=== PATIENT | male | born 1940 | race Caucasian/White ===

== ENCOUNTER → 2016-09-11 | Outpatient (CLI) | payer BC ==
[~2016-09-11] MED LIST: APR50; ASPI81TA28 PO; ATOR-24 PO; BENA20TA14 PO; CARB1TAB29 PO; CARV12.52 PO; EFF75 PO; FINA5TAB PO; GLC/500 PO; IMDSR30 PO; KLN5 PO; LSX20 PO; MCRK20 PO; PARO30TA4 PO; TAMS0.4C38 PO; TRAM-10 PO; VSC/5 PO; ZRX5
[2016-09-11 17:50] LABS: CHOLESTEROL/HDL RATIO 3.5
[2016-09-12 06:39] LABS: ESTIMATED AVERAGE GLUCOSE 134 mg/dl; HA1C FLAG Normal (Normal)
== END | disposition home or self-care (01) ==
LOC: C.LABPBG 11:59
PROVIDERS: ATTEND Internal Medicine
DX: I25.10 Atherosclerotic heart disease of native coronary artery without angina pectoris (principal); I50.22 Chronic systolic (congestive) heart failure; E78.5 Hyperlipidemia, unspecified; I10 Essential (primary) hypertension; E11.9 Type 2 diabetes mellitus without complications

== ENCOUNTER → 2016-12-30 | Outpatient (CLI) | payer BC ==
[~2016-12-30] MED LIST changes: +ACET1TAB84 PO; +ASPEC325 PO; +RXC5 PO
[2016-12-30 12:18] LABS: BASO % 0.3 %; BASO ABS # 0.02 K/uL (0-0.2); COMPLETE YES; EOS % 3.4 %; HEMATOCRIT 41.9 % (42-52); IG% 0.2 %; LYMPH % 23.4 %; LYMPH ABS # 1.36 K/uL (1.2-3.4); MEAN CELL VOLUME 88.6 fL (80-100); MEAN CORPUSCULAR HEMOGLOBIN 30.9 pg (25-34); MEAN CORPUSCULAR HGB CONC 34.8 g/dl (32-36); MONO % 8.4 %; NEUT % 64.3 %; PLATELET COUNT 167 K/uL (130-400); RED BLOOD COUNT 4.73 M/uL (4.7-6.1); WHITE BLOOD COUNT 5.81 K/uL (4.8-10.8)
[2016-12-30 12:46] LABS: URINE APPEARANCE CLEAR (CLEAR); URINE BILIRUBIN NEG (NEG); URINE COLOR DK YELLOW; URINE NITRITE NEG (NEG); URINE SPECIFIC GRAVITY 1.021 (1.000-1.030); UROBILINOGEN NEG (NEG)
[2016-12-30 12:48] LABS: URINE PROTIEN/CREAT RATIO 0.1 (0-0.2); URINE TOTAL PROTEIN 19.3 mg/dl (0-11.9)
[2016-12-30 12:53] LABS: MANUAL MICROSCOPIC REQUIRED? NO; REVIEW REQ? NO
[2016-12-30 13:28] LABS: BLOOD UREA NITROGEN 22 mg/dl (7-18); BUN/CREATININE RATIO 17.1 (10-20); CALCIUM 8.5 mg/dl (8.5-10.1); CARBON DIOXIDE 27 mmol/L (21-32); CHLORIDE 110 mmol/L (98-107); GLUCOSE 132 mg/dl (70-99); PHOSPHORUS 3.2 mg/dl (2.5-4.9); POTASSIUM 3.8 mmol/L (3.5-5.1); SODIUM 145 mmol/L (136-145)
[2016-12-30 13:31] LABS: RHEUMATOID FACTOR < 10.0 U/mL (0-15)
[2016-12-30 18:09] LABS: LYME DISEASE AB IGM NEG (NEG)
[2016-12-30 18:12] LABS: LYME DISEASE AB IGG NEG (NEG)
== END | disposition home or self-care (01) ==
LOC: C.LABPBG 10:53
PROVIDERS: ATTEND Internal Medicine
DX: I10 Essential (primary) hypertension (principal); I25.5 Ischemic cardiomyopathy; N18.3 Chronic kidney disease, stage 3 (moderate); D64.9 Anemia, unspecified; E55.9 Vitamin D deficiency, unspecified; M79.1 Myalgia

== ENCOUNTER → 2017-01-07 | Outpatient (CLI) | payer BC ==
--- NOTE | 2017-01-07 12:00 | DIAGNOSTIC IMAGING REPORT ---
FLUOROSCOPIC GUIDED right HIP STEROID INJECTION FLUOROSCOPY TIME: 10 seconds. A single fluoroscopic spot image. HISTORY: Right hip pain.. PROCEDURE: After obtaining written informed consent, the patient was placed supine on the fluoroscopy table. A suitable site for needle insertion was marked using fluoroscopic guidance. The right hip was prepped and draped in the usual sterile fashion. 1% lidocaine was used for skin, subcutaneous and deep soft tissue anesthesia. Under intermittent fluoroscopic guidance, a 22 gauge x 3.5 inch spinal needle was inserted into the right hip joint. 2 cc of Optiray 300 was injected to confirm the intra-articular location. This is followed by a mixture of 5cc of 0.5% bupivacaine and 2 cc of Celestone at the request of the referring physician. The needle was then removed. There were no apparent complications. IMPRESSION: Fluoroscopic-guided right hip steroid injection without immediate complication. Electronically signed by: Jacob Raphael M.D. 01/07/2017 11:58 AM Dictated Date/Time: 01/07/2017 11:57 AM
== END | disposition home or self-care (01) ==
LOC: C.RADBC 10:34
PROVIDERS: ATTEND Orthopaedic Surgery
DX: M16.11 Unilateral primary osteoarthritis, right hip (principal)

== ENCOUNTER → 2017-04-07 | Outpatient (CLI) | payer BC ==
--- NOTE | 2017-04-07 11:10 | DIAGNOSTIC IMAGING REPORT ---
FLUOROSCOPIC GUIDED right HIP STEROID INJECTION FLUOROSCOPY TIME: 6 seconds. Single fluoroscopic spot image of the right hip HISTORY: Right hip pain. PROCEDURE: After obtaining written informed consent, the patient was placed supine on the fluoroscopy table. A suitable site for needle insertion was marked using fluoroscopic guidance. The right hip was prepped and draped in the usual sterile fashion. 1% lidocaine was used for skin, subcutaneous and deep soft tissue anesthesia. Under intermittent fluoroscopic guidance, a 22 gauge x 3.5 inch spinal needle was inserted into the right hip joint. 2 cc of Optiray 300 was injected to confirm the intra-articular location. This is followed by a mixture of 5cc of 0.5% bupivacaine and 2 cc of betamethasone at the request of the referring physician. The needle was then removed. There were no apparent complications. IMPRESSION: Fluoroscopic-guided right hip steroid injection without immediate complication. Electronically signed by: Jacob Raphael M.D. 04/07/2017 11:09 AM Dictated Date/Time: 04/07/2017 11:08 AM
== END | disposition home or self-care (01) ==
LOC: C.RADBC 09:40
PROVIDERS: ATTEND Orthopaedic Surgery
DX: M16.11 Unilateral primary osteoarthritis, right hip (principal)

== ENCOUNTER → 2017-05-14 | Outpatient (CLI) | payer BC ==
[~2017-05-14] MED LIST changes: -ACET1TAB84 PO; -ASPEC325 PO; -PARO30TA4 PO; -RXC5 PO; -TRAM-10 PO; -VSC/5 PO
[2017-05-14 16:53] LABS: MANUAL MICROSCOPIC REQUIRED? NO; REVIEW REQ? NO; URINE APPEARANCE CLEAR (CLEAR); URINE BILIRUBIN NEG (NEG); URINE COLOR YELLOW; URINE EPITHELIAL CELL AUTO 0-5 /lpf (0-5); URINE NITRITE NEG (NEG); URINE PH 6.5 (4.5-7.5); URINE SPECIFIC GRAVITY 1.019 (1.000-1.030); UROBILINOGEN NEG (NEG)
== END | disposition home or self-care (01) ==
LOC: C.LABPBG 14:34
PROVIDERS: ATTEND Internal Medicine
DX: N39.0 Urinary tract infection, site not specified (principal)

== ENCOUNTER → 2017-05-18 | Outpatient (CLI) | payer BC ==
[~2017-05-18] MED LIST changes: +ACET1TAB84 PO; +ASPEC325 PO; +BUPIVACAINE 0.5 % 5 MG/1 ML PF 10ML VIAL ONE; +EpHEDrine SULFATE 50MG/5ML SYR ONE; +EpHEDrine SULFATE INJ 50 MG/ML AMP ONE; +FENTANYL CITRATE INJ 50 MCG/1 ML 2 ML VIAL ONE; +MIDAZOLAM HCL 1 MG/ML 2ML VIAL ONE; +PHENYLEPHRINE 100MCG/ML 5ML SYR ONE; +PHENYLEPHRINE HCL INJ 10 MG/ML VIAL ONE; +PROPOFOL IV EMULSION 10 MG/ML 20 ML VIAL IV ONE; +REGADENOSON 0.4 MG/5 ML SYR ONE; +RXC5 PO
--- NOTE | 2017-05-18 18:34 | Myocardial Perfusion Study ---
Myocardial Perfusion Study Rpt Myocardial Perfusion Study Rpt Date of Service 05/18/2017 Myocardial Perfusion Study Rpt Procedure: 1. Myocardial perfusion study performed in multiple views/images 2. Lexiscan pharmacologic stress ECG Indications: 1. CAD 2. Ischemic cardiomyopathy 3. Preoperative cardiac assessment Consent: Informed written consent was obtained prior to the procedure. Ordering physician: Mr. Sp PA-C / Dr. Luis Procedural details: For the stress portion of the study, Lexiscan 0.4 mg was intravenously administered followed by a saline flush. This was followed by 31.8 mCi of technetium 99m Cardiolite, injected at 13 20 on 05/18/2017. 30 minutes following the injection, imaging of the heart was performed in multiple projections. For the rest portion of the study, 10.9 mCi technetium 99m Cardiolite was injected intravenously at 11:20 a.m. on 05/18/2017. 1 hour following the injection, imaging of the heart was performed in the same projections. Lexiscan stress ECG: Resting ECG demonstrated: Ventricular pacing with PVC at 62 bpm Maximum heart rate: 71 bpm Resting blood pressure: 121/80 mmHg Maximum blood pressure: 128/83 mmHg Maximal, age-predicted heart rate: 50 % Significant ST changes: None Arrhythmia: None Symptoms: No chest pain. No symptoms reported. Findings: Rotating raw imaging demonstrated no significant lung uptake. There is no significant motion artifact. Heart size appeared enlarged. Myocardial perfusion demonstrated small area of mildly reduced uptake involving the basal inferolateral wall which appeared to be fixed with minimal reversibility, suggesting infarct with arnoldo-infarct ischemia. No other significant fixed or reversible defect. Ejection fraction: 40 % Wall motion: The inferior and inferolateral wall segments appeared hypokinetic. Visually, there did appear to be some degree of transient ischemic dilation. Ratio not available. Impression: 1. Basal inferolateral infarct with arnoldo-infarct ischemia. 2. Dilated left ventricle. 3. Mildly to moderately reduced LV systolic function. EF 40%. 4. Hypokinesis of the inferior and inferolateral wall segments. 5. No symptoms reported. 6. Transient ischemic dilation upon visual inspection. Ratio not available. Nonspecific finding. 7. Indeterminate Lexiscan ECG.
== END | disposition home or self-care (01) ==
LOC: C.NUCL 10:54
PROVIDERS: ATTEND Physician Assistant Medical
DX: Z01.810 Encounter for preprocedural cardiovascular examination (principal); I25.10 Atherosclerotic heart disease of native coronary artery without angina pectoris; I25.5 Ischemic cardiomyopathy

== ENCOUNTER 2017-05-21 05:00 | Inpatient (IN) | payer BC, OTHER ==
[2017-05-03 10:54] VITALS: BMI 33.0
--- NOTE | 2017-05-03 11:40 | PAT Medication Instructions ---
Service Date May 03, 2017. Current Home Medication List Aspirin (Aspirin Ec), 81 MG PO QAM Atorvastatin (Lipitor), 40 MG PO HS Benazepril (Lotensin), 20 MG PO QAM Carbonyl Iron (Feosol), 1 TAB PO QAM Carvedilol (Coreg), 12.5 MG PO BID Clonazepam (Clonazepam), 0.25 MG PO HS Finasteride (Proscar), 5 MG PO QPM Furosemide (Furosemide), 40 MG PO BID Hydralazine HCl (Hydralazine HCl), TID Isosorbide Mononitrate (Isosorbide Mononitrate ER), 30 MG PO QAM Metformin Hcl (Glucophage), 500 MG PO QAM Metolazone (Metolazone), 5 MG UD PRN for WT GAIN Potassium Chloride (Klor-Con), 20 MEQ PO TID Tamsulosin Hcl (Flomax), 0.4 MG PO QPM Venlafaxine Hcl (Effexor), 75 MG PO QAM Medication Instructions For Your Scheduled Surgery - Hold the following medications 48 hours prior to surgery: Metformin Hcl (Glucophage), 500 MG PO QAM - Hold the following medications the morning of surgery: Potassium Chloride (Klor-Con), 20 MEQ PO TID Furosemide (Furosemide), 40 MG PO BID Carbonyl Iron (Feosol), 1 TAB PO QAM Benazepril (Lotensin), 20 MG PO QAM Metolazone (Metolazone), 5 MG UD PRN for WT GAIN - Take the following medications the morning of surgery with a sip of water: Venlafaxine Hcl (Effexor), 75 MG PO QAM Isosorbide Mononitrate (Isosorbide Mononitrate ER), 30 MG PO QAM Hydralazine HCl (Hydralazine HCl), TID Carvedilol (Coreg), 12.5 MG PO BID Aspirin (Aspirin Ec), 81 MG PO QAM - Take the following medications as scheduled the night before surgery: Tamsulosin Hcl (Flomax), 0.4 MG PO QPM Potassium Chloride (Klor-Con), 20 MEQ PO TID Hydralazine HCl (Hydralazine HCl), TID Furosemide (Furosemide), 40 MG PO BID Finasteride (Proscar), 5 MG PO QPM Clonazepam (Clonazepam), 0.25 MG PO HS Carvedilol (Coreg), 12.5 MG PO BID Atorvastatin (Lipitor), 40 MG PO HS If you have any questions please call us at [phone] or [phone] or [phone]
[2017-05-03 12:18] LABS: BASO % 0.5 %; BASO ABS # 0.03 K/uL (0-0.2); COMPLETE YES; EOS % 3.2 %; HEMATOCRIT 41.7 % (42-52); LYMPH ABS # 1.38 K/uL (1.2-3.4); MEAN CELL VOLUME 90.1 fL (80-100); MEAN CORPUSCULAR HEMOGLOBIN 31.7 pg (25-34); MEAN CORPUSCULAR HGB CONC 35.3 g/dl (32-36); MEAN PLATELET VOLUME 9.8 fL (7.4-10.4); MONO % 8.8 %; NEUT % 64.5 %; PLATELET COUNT 174 K/uL (130-400); RED BLOOD COUNT 4.63 M/uL (4.7-6.1); WHITE BLOOD COUNT 6.01 K/uL (4.8-10.8)
[2017-05-03 12:22] LABS: URINE APPEARANCE CLEAR (CLEAR); URINE BILIRUBIN NEG (NEG); URINE COLOR YELLOW; URINE NITRITE NEG (NEG); URINE PH 6.5 (4.5-7.5); URINE SPECIFIC GRAVITY 1.021 (1.000-1.030); UROBILINOGEN NEG (NEG)
[2017-05-03 12:24] LABS: MANUAL MICROSCOPIC REQUIRED? NO; REVIEW REQ? NO
[2017-05-03 12:27] LABS: PARTIAL THROMBOPLASTIN RATIO 1.1; PROTHROMBIN TIME (PATIENT) 11.1 SECONDS (9.0-12.0)
--- NOTE | 2017-05-03 12:33 | DIAGNOSTIC IMAGING REPORT ---
CHEST PREADMISSION(PA/LAT) CLINICAL HISTORY: Preoperative chest COMPARISON STUDY: 03/23/2014 FINDINGS: The cardiac and mediastinal contours remain stable. There is a left subclavian dual-chamber central venous pacemaker present. There is no failure. There is no focal pulmonary consolidation. No pleural effusions are visualized.[ IMPRESSION: No active disease in the chest. Electronically signed by: Linwood Morataya M.D. 05/03/2017 12:32 PM Dictated Date/Time: 05/03/2017 12:32 PM
[2017-05-03 13:19] LABS: CALCIUM 8.9 mg/dl (8.5-10.1); CREATININE 1.1 mg/dl (0.60-1.40); POTASSIUM 3.8 mmol/L (3.5-5.1)
--- NOTE | 2017-05-20 20:14 | HISTORY & PHYSICAL EXAMINATION ---
DATE OF ADMISSION: 05/21/2017 CHIEF COMPLAINT: Primary osteoarthritis of the right hip. HISTORY OF PRESENT ILLNESS: aRy is a pleasant 76-year-old male who is retired and has been having about 2-year history of right hip pain. He has had several intra-articular hip injections. Initially, they started to provide him relief, but more recently, they have not. He has difficulty ambulating, difficulty going up and down stairs. It occasionally keeps him up at night. It is all located deep within his groin. X-rays and clinical examination were diagnostic for primary osteoarthritis of the right hip. After failing extensive conservative treatment, he has elected to proceed with a right total hip arthroplasty. PAST MEDICAL HISTORY: Significant for heart disease, non-insulin dependent diabetes, hyperlipidemia, hypertension, and kidney disease. He had congestive heart failure with an CT in 2011 with heart catheterization in 2011 and a pacemaker placement. PAST SURGICAL HISTORY: Significant for Mohs surgery, right carpal tunnel release, hernia repair, left knee arthroscopy and a pacemaker. ALLERGIES: MORPHINE. MEDICATIONS: Include aspirin 81 mg daily, Lipitor 40 mg at night, benazepril 20 mg daily, Coreg 12.5 mg twice a day, clonazepam 0.25 mg at night, Proscar 5 mg daily, Lasix 40 mg twice a day, hydralazine 50 mg daily, isosorbide 30 mg daily, Glucophage 500 mg daily, metolazone 5 mg as needed, Klor-Con 20 mEq 3 times a day, Flomax 0.4 mg daily, and Effexor 75 mg daily. FAMILY HISTORY: Significant for heart disease and diabetes. SOCIAL HISTORY: He is , never drinks. Denies any tobacco use and does little activity. REVIEW OF SYSTEMS: He complains of significant right hip pain. All other pertinent review of systems are negative. PHYSICAL EXAMINATION: GENERAL: He is awake, alert and oriented x3. He is in no apparent distress. He is very pleasant. HEENT: Pupils equal, round and reactive to light. Extraocular motions are intact. Oral mucosa is pink and moist. HEART: Regular rate per radial pulse. LUNGS: Sendy symmetrically bilaterally with no audible breath sounds. ABDOMEN: Soft, nontender, and nondistended. MUSCULOSKELETAL: On physical examination of the right hip, he can lie flat on the table. He has 90 degrees of flexion, 10 degrees of internal rotation, 30 degrees of external rotation with pain and range of motion. He has no tenderness to palpation over the greater trochanteric bursa. He can plantarflex and dorsiflex appropriately with his right foot, and he has full range of motion of his knee. IMAGING DATA: X-rays of the right hip do show advanced osteoarthritis with joint space narrowing and osteophyte formation. IMPRESSION: Primary osteoarthritis of the right hip. PLAN: We will proceed with a Biomet Taperloc right total hip arthroplasty through an anterior approach. Postoperatively, he will be started on aspirin for DVT prophylaxis and kept in the hospital for postoperative medical management. PALLAVI
[~2017-05-21] VITALS: Ht 170.2 cm; Wt 96.4 kg
[2017-05-21] VITALS (12 sets, daily range): BP systolic 123–163; BP diastolic 66–86; PULSE 58–80; TEMP 35.4–36.8; O2SAT 94–98; Ht 170.2 cm; Wt 96.4 kg
[~2017-05-21 05:00] MED LIST changes: -ACET1TAB84 PO; -ASPEC325 PO; -BUPIVACAINE 0.5 % 5 MG/1 ML PF 10ML VIAL ONE; -EpHEDrine SULFATE 50MG/5ML SYR ONE; -EpHEDrine SULFATE INJ 50 MG/ML AMP ONE; -FENTANYL CITRATE INJ 50 MCG/1 ML 2 ML VIAL ONE; -MIDAZOLAM HCL 1 MG/ML 2ML VIAL ONE; -PHENYLEPHRINE 100MCG/ML 5ML SYR ONE; -PHENYLEPHRINE HCL INJ 10 MG/ML VIAL ONE; -PROPOFOL IV EMULSION 10 MG/ML 20 ML VIAL IV ONE; -REGADENOSON 0.4 MG/5 ML SYR ONE; -RXC5 PO
[2017-05-21] MEDS ORDERED: LACTATED RINGER'S 1000ML IV SCH (06:00)
[2017-05-21] MEDS ORDERED: CEFAZOLIN 2000 MG/60 ML D5W 60 ML IV SCH (06:00)
[2017-05-21] MEDS ORDERED: FAMOTIDINE 20 MG TAB PO SCH (06:00)
[2017-05-21] MEDS ORDERED: GABAPENTIN 300 MG CAP PO SCH (06:00)
[2017-05-21] MEDS ORDERED: ACETAMINOPHEN 500 MG TAB PO SCH (06:00)
[2017-05-21] MEDS ORDERED: ROPIVACAINE 5MG/ML 30 ML 150 MG, BUPIVACAINE/EPINEPHR 0.5% MPF 30 ML, KETOROLAC TROMETH... INFIL SCH ×7 (06:00)
[2017-05-21] MEDS ORDERED: LACTATED RINGER'S 1000ML 1,000 ML IV SCH (06:00)
[2017-05-21] MEDS ORDERED: ACET1TAB84 PO (06:11)
--- NOTE | 2017-05-21 06:27 | History & Physical Bridge Note ---
H&P Re-Evaluation Bridge Note: I have examined the patient, reviewed the History & Physical and in the interval since the performance of the History & Physical I have noted the following changes of clinical significance: No changes noted
[2017-05-21] MEDS: TRANEXAMIC ACID INJ 1,000 MG in SODIUM CHLORIDE 0.9% 100ML 100 ML IV SCH ×2 (06:30→06:56)
[2017-05-21] MEDS ORDERED: ORTHO JOINT ANESTHETIC ONE (06:39)
[2017-05-21] MEDS ORDERED: BACITRACIN 50000 UNIT VIAL ONE (06:40)
--- NOTE | 2017-05-21 09:19 | [facility] Post Operative Brief Note ---
Immediate Operative Summary Operative Date May 21, 2017. Pre-Operative Diagnosis Right hip degenerative joint disease Post-Operative Diagnosis same as pre-operative Procedure(s) Performed Right Anterior Total Hip Arthroplasty Surgeon Dr. Cameron Peña [place] [employer]er Surgeon(s) Song Smith PA-C Estimated Blood Loss 250ml Findings as above Specimens Specimen A: Right femoral head Complication(s) None Disposition Recovery Room / PACU
[2017-05-21] MEDS ORDERED: SOD PHOSPHATE/SOD BIPHOSPHATE ENEMA 132 ML BTL PR PRN (09:30)
[2017-05-21] MEDS ORDERED: ATROPINE SULFATE 0.1 MG/ML 5ML SYR IV PRN (09:30)
[2017-05-21] MEDS ORDERED: ONDANSETRON INJ 2 MG/ML 2 ML VIAL IV PRN ×2 (09:30)
[2017-05-21] MEDS ORDERED: DEXTROSE 50% 50 ML SYR IV PRN (09:30)
[2017-05-21] MEDS ORDERED: GLUCOSE 40% GEL 15 GM TUBE PO PRN (09:30)
[2017-05-21] MEDS ORDERED: HYDROmorphone INJ 1 MG/ML SYR IV PRN ×2 (09:30)
[2017-05-21] MEDS ORDERED: SILVER SULFADIAZINE 1% CR 50 GM JAR EXT PRN (09:30)
[2017-05-21] MEDS ORDERED: MAGNESIUM HYDROXIDE SUSP 30 ML UDC PO PRN (09:30)
[2017-05-21] MEDS ORDERED: GLUCOSE 10 TABS/TUBE PO PRN (09:30)
[2017-05-21] MEDS ORDERED: GLUCAGON FOR INJ 1 MG VIAL SQ PRN (09:30)
[2017-05-21] MEDS ORDERED: LABETALOL HCL IV 5 MG/ML 20ML IV PRN (09:30)
[2017-05-21] MEDS ORDERED: MEPERIDINE HCL 25 MG/ML CARP IV PRN (09:30)
[2017-05-21] MEDS ORDERED: BISACODYL 10 MG SUPP PR PRN (09:30)
[2017-05-21] MEDS ORDERED: FENTANYL CITRATE INJ 50 MCG/1 ML 2 ML VIAL IV PRN (09:30)
[2017-05-21] MEDS ORDERED: METOCLOPRAMIDE HCL INJ 5 MG/ML 2 ML VIAL IV PRN (09:30)
[2017-05-21] MEDS ORDERED: EpHEDrine SULFATE INJ 50 MG/ML AMP IV PRN (09:30)
[2017-05-21] MEDS ORDERED: OXYCODONE HCL IR 5 MG TAB (IMMEDIATE RELEASE) PO PRN (09:30)
[2017-05-21] MEDS ORDERED: PHARMACY GLYCEMIC MGMT CONSULT PRN (09:31)
--- NOTE | 2017-05-21 09:35 | DIAGNOSTIC IMAGING REPORT ---
R HIP UNILATERAL 1 VIEW HISTORY: 76 years-old Male RT ANTERIOR HIP status post right total hip arthroplasty COMPARISON: Pelvis radiograph 03/31/2017 TECHNIQUE: 2 spot fluoroscopic images of the right hip were obtained utilizing 51.9 seconds fluoroscopy time FINDINGS: First image demonstrates postoperative removal of the femoral head and neck. Acetabular component of right hip arthroplasty is intact and in satisfactory alignment. Second image demonstrates placement of a femoral stem arthroplasty component which appears in satisfactory positioning without periprosthetic fracture. Expected postsurgical soft tissue swelling and air is noted about the right hip. IMPRESSION: Fluoroscopic assistance as above. The above report was generated using voice recognition software. It may contain grammatical, syntax or spelling errors. Electronically signed by: Adrien Mckinney M.D. 05/21/2017 9:33 AM Dictated Date/Time: 05/21/2017 9:30 AM
--- NOTE | 2017-05-21 09:45 | Pharmacy Progress Note ---
Glycemic Control Intl Consult Date of Service May 21, 2017. Scope Glycemic Pharmacist consulted by Dr Peña on 05/21/17 for glycemic control and to write orders per [facility] inpatient glycemic control protocol Objective Weight (Kilograms): 96.40 Accuchecks BSG (last 24hrs): Test 05/21/17 05:38 Bedside Glucose 149 mg/dl (70-99) Recent Pertinent Medications Outpatient Anti-diabetic Regimen: * Metformin 500mg po daily * A1c = 6.3 % 09/11/16 Risk Factors for Insulin Resistance: * IVF: pre and post op Ancef mixed in dextrose * Recent Surgery: s/p JERAMIE * Diet: Type 2 DM Assessment & Plan ASSESSMENT: * 76 year old male s/p JERAMIE, type 2 diabetic, controlled per A1c in August, new A1c ordered with AM labs tomorrow. * Pt is maintained on oral antidiabetic agents as an outpatient * Oral agents are not recommended for inpatient use d/t drug interactions, changing PO intake, and difficulty titrating for acute hyper/hypoglycemia. ADA recommends re-initiating outpatient oral agents 1-2 days prior to discharge if/ when appropriate if they were held on admission. * Will hold oral agents for admission and utilize SQ bolus insulin regimen which is the recommended regimen for inpatient glycemic control. * Will initiate weight based insulin dosing for insulin shlomo patient and titrate based on BSG trends. * Will add basal insulin if needed based on BSG trends. * ADA & AACE recommend a goal blood sugar range 140-180 mg/dl for the majority of critically ill & non-critically ill patients. However, more stringent targets may be selected in individual cases. Will utilize more stringent goal of 110-140mg/dl based on patient age & comorbidities. Additionally, tighter glycemic control is warranted to facilitate wound/infection healing. PLAN FOR INPATIENT GLYCEMIC CONTROL: * Holding outpatient oral diabetes medications * Correctional Insulin with NOVOLOG per scale ACHS or Q6hrs while NPO * Goal Range: Low 110 mg/dL - High 140 mg/dL * Correction Factor: 30 mg/dL/unit * Nutritional / Prandial insulin per carb ratio of 1 unit per 12 grams CHO consumed * Please note that the plan above was derived based on current level of insulin resistance and hospital stress. These recommendations are appropriate for inpatient admission only. Plan of care upon discharge will need to be reassessed to avoid potential outpatient hypo/hyperglycemia. Thank you.
--- NOTE | 2017-05-21 10:02 | OPERATIVE REPORT ---
DATE OF OPERATION: 05/21/2017 PREOPERATIVE DIAGNOSIS: Primary osteoarthritis of the right hip. POSTOPERATIVE DIAGNOSIS: Same. PROCEDURE: Right total hip arthroplasty. SURGEON: Dr. Cameron Peña. TRANSPORT TANK TECHNICIAN: Lamonte Smith PA-C, whose assistance was necessary for retraction and closure. ANESTHESIA: Spinal. COMPLICATIONS: None. CONDITION: Stable to PACU. IMPLANTS USED: I used a Biomet Taperloc total hip arthroplasty with a size 11 high offset Taperloc stem, a G7 size 52 acetabulum with a single 20 mm screw, a 52 x 36 E1 neutral liner and a 36 ceramic head with a -3 neck. INDICATIONS: Juan is a pleasant 76-year-old male who presented to my office with chronic right hip and groin pain. X-rays and clinical examination were diagnostic for primary osteoarthritis of the right hip. After failing conservative treatment, he elected to undergo a right total hip arthroplasty. OPERATION AND FINDINGS: On 05/21/2017 he arrived at [facility] for the above procedure. He was seen in the preoperative holding area and the operative extremity was identified and signed. He was given a preoperative antibiotic, TXA and a spinal anesthetic. He was taken back to the operating room, laid on the table in supine position and given basic sedation. The right hip was then brought out to a Purist leg positioner and the right hip was prepped and draped in sterile fashion. Time-out was done and the patient and operative extremity was properly identified. An anterior approach was used. Dissection was taken down to the fascia and the fascia was split. The tensor was retracted laterally and rectus was retracted medially. Circumflex vessels were ligated. The capsule was then incised for later repair. The femoral neck was then resected and the head was removed. The acetabulum was then exposed. Time was spent doing a complete circumferential capsular labral release. Sequential reaming up to a size 51 reamer was done. Reaming was done under fluoroscopy to ensure appropriate aversion. The final size 52 G7 cup was then impacted into place. I was able to get a good press fit so I placed a single 20 mm screw. A neutral E1 poly liner was then placed. The proximal femur was then exposed and the canal was opened up. Sequential broaching up to a size 11 broach was done. A standard head was placed. The hip was reduced, fluoroscopic images were taken. I thought the leg length was a little bit long, so I decided to go with a -3 head. I was happy with the size of the stem implant. The broach was then removed. The final size 11 high offset Taperloc stem was then impacted into place. A size 36 ceramic head with a -3 neck was then placed on the trunnion and the hip was reduced. Final fluoroscopic images showed anatomic reduction and anatomic alignment of the hip with appropriate sizing of the implants. The capsule was then closed with #1 Vicryl suture and the entire hip was irrigated. The surrounding soft tissues were injected with 100 mL of an orthopedic pain control cocktail. The hip was once again irrigated with 3 liters of normal saline solution with bacitracin. Hemostasis was controlled and drain was placed. The fascia was then closed with #1 PDS suture and skin was closed with 2-0 Vicryl, 3-0 V-Loc suture and adrien. He was then placed in a soft dressing and taken to the postanesthesia care unit in stable condition. He tolerated the procedure well. I attest to the content of the Intraoperative Record and any orders documented therein. Any exception s are noted below.
--- NOTE | 2017-05-21 10:30 | Anesthesiology Progress Note ---
Anesthesia Post Op Note Date & Time May 21, 2017 at 10:30 Vital Signs Pain Intensity: 0 Vital Signs Past 12 Hours Date Time Temp Pulse Resp B/P (MAP) Pulse Ox O2 Delivery O2 Flow Rate FiO2 05/21/17 10:15 36.6 60 14 108/61 99 Oxymask 3 05/21/17 10:00 60 14 93/60 99 Oxymask 3 05/21/17 09:50 61 16 108/59 99 Oxymask 5 05/21/17 09:40 65 16 103/59 99 Oxymask 5 05/21/17 09:34 36.5 75 16 101/62 99 Oxymask 5 05/21/17 05:57 36.3 68 18 125/78 96 Room Air Notes Mental Status: alert / awake / arousable, participated in evaluation Pt Amnestic to Procedure: Yes Nausea / Vomiting: adequately controlled Pain: adequately controlled Airway Patency, RR, SpO2: stable & adequate BP & HR: stable & adequate Hydration State: stable & adequate Neuraxial Anesthesia: was administered, sensory block is resolving Anesthetic Complications: no major complications apparent
--- NOTE | 2017-05-21 10:30 | DIAGNOSTIC IMAGING REPORT ---
SINGLE VIEW PELVIS; SINGLE VIEW RIGHT HIP CLINICAL HISTORY: Postoperative examination. FINDINGS: An AP portable view of the hips and pelvis with a crosstable lateral portable view of the right hip are obtained. A bipolar right hip arthroplasty is in near-anatomic alignment. A single cortical lag screw transfixes the acetabular cup. No acute fracture is identified. There are expected postoperative changes overlying the right hip including skin clips, subcutaneous gas, a surgical drain, and soft tissue swelling. Moderate arthritic change is seen in the left hip. Numerous pelvic phlebolith are observed. There is advanced atherosclerotic calcification of the femoral arteries. IMPRESSION: Expected postoperative findings status post right hip arthroplasty. No acute fracture is seen. Electronically signed by: Castillo Arguello M.D. 05/21/2017 10:28 AM Dictated Date/Time: 05/21/2017 10:27 AM
[2017-05-21] MEDS: SODIUM CHLORIDE 0.9% 1000ML 1,000 ML IV SCH ×2 (11:50→18:51)
[2017-05-21] MEDS: KETOROLAC TROMETHAMINE 15 MG/ML VIAL IV. SCH ×3 (14:19→23:15)
[2017-05-21] MEDS: ACETAMINOPHEN IV 1,000 MG in EMPTY BAG 0 ML IV SCH ×2 (14:19→22:36)
[2017-05-21] MEDS: CEFAZOLIN IV 2,000 MG in DEXTROSE 5% 50ML 50 ML IV SCH ×2 (14:20→21:31)
[2017-05-21] MEDS ORDERED: INFLUENZA ADMINISTRATION CHARGE ONE (14:30)
[2017-05-21] MEDS ORDERED: INFLUENZA VACCINE HIGH DOSE 65+ 0.5 ML SYR IM. ONE (14:30)
[2017-05-21] MEDS: INSULIN ASPART 100 UNITS/ML 3 ML PEN SC SCH ×3 (14:31→21:30)
[2017-05-21] MEDS: FUROSEMIDE 40 MG TAB PO SCH (17:33)
[2017-05-21] MEDS: ASPIRIN 325 MG ECTAB PO SCH (21:25)
[2017-05-21] MEDS: DOCUSATE SODIUM 100 MG CAP PO SCH (21:25)
[2017-05-21] MEDS: CARVEDILOL 12.5 MG TAB PO SCH (21:25)
[2017-05-21] MEDS: SENNA 8.6 MG TAB PO SCH (21:25)
[2017-05-21] MEDS: TAMSULOSIN HCL 0.4 MG CAP PO SCH (21:26)
[2017-05-21] MEDS: POTASSIUM CHLORIDE 20 MEQ TABCR PO SCH (21:26)
[2017-05-21] MEDS: FINASTERIDE 5 MG TAB PO SCH (21:26)
[2017-05-21] MEDS: CLONAZEPAM 0.5 MG TAB PO SCH (21:26)
[2017-05-21] MEDS: ATORVASTATIN 40 MG TAB PO SCH (21:27)
[2017-05-22] VITALS (7 sets, daily range): BP systolic 119–157; BP diastolic 68–80; PULSE 55–78; TEMP 36.4–36.9; O2SAT 92–99
[2017-05-22] MEDS: SODIUM CHLORIDE 0.9% 1000ML 1,000 ML IV SCH (05:12)
[2017-05-22] MEDS: KETOROLAC TROMETHAMINE 15 MG/ML VIAL IV. SCH ×4 (05:34→23:38)
[2017-05-22] MEDS: ACETAMINOPHEN IV 1,000 MG in EMPTY BAG 0 ML IV SCH (05:35)
[2017-05-22 06:22] LABS: COMPLETE YES; HEMATOCRIT 32.6 % (42-52); IG% 0.2 %; LYMPH % 10.7 %; LYMPH ABS # 1.02 K/uL (1.2-3.4); MEAN CELL VOLUME 87.4 fL (80-100); MEAN CORPUSCULAR HEMOGLOBIN 30.6 pg (25-34); MEAN PLATELET VOLUME 9.5 fL (7.4-10.4); MONO % 10.1 %; PLATELET COUNT 129 K/uL (130-400); RED BLOOD COUNT 3.73 M/uL (4.7-6.1); WHITE BLOOD COUNT 9.56 K/uL (4.8-10.8)
[2017-05-22 06:54] LABS: BUN/CREATININE RATIO 18.6 (10-20); CREATININE 1.4 mg/dl (0.60-1.40); POTASSIUM 3.7 mmol/L (3.5-5.1)
--- NOTE | 2017-05-22 07:55 | Discharge Instructions ---
Discharge Instructions Date of Service May 22, 2017. Admission Reason for Admission: Right Hip Osteoarthritis Discharge Discharge Diagnosis / Problem: Right Total Hip Discharge Goals Goal(s): Decrease discomfort Activity Recommendations Activity Limitations: as noted below . Instructions / Follow-Up Instructions / Follow-Up Activity and Therapy Recommendations: * If you are using [facility] then Physical Therapy will be provided until they feel you are ready to start Outpatient Physical Therapy. If you are not using a Home Health agency then Outpatient Physical Therapy should start about 3-5 days from your day of surgery. Therapy will last about 3-6 weeks * You were shown a series of exercises in the hospital. Do these exercises three times each day including the exercises you were shown in physical therapy. * Get up and walk several times each day.~ For the first four weeks, try not to stand or walk for more than one hour at a time. If you do stand or walk for more than one hour, you will not hurt anything, but your leg will likely swell.~ ~ * As you feel comfortable, you may change from the walker or crutches to a cane and~then to independent walking. Medications: * Narcotic You will likely be sent home from the hospital with a prescription for the narcotic pain medication that worked best throughout your stay. * Aspirin Most patients will be required to take Aspirin 325mg twice a day for 6 weeks after surgery. This is obtained [id number] and a prescription is not necessary. * Other medications may be prescribed for specific circumstances. If you have any questions, please call the office at . * Resume previous home medications unless otherwise instructed TEDs/Elastic Stockings: The white elastic stockings help limit swelling and prevent blood clots from forming in your legs. The more you wear them, the more they work. Wear them for six weeks. Showering: You may shower 5 days from the day of surgery. Let the soapy shower water run over the adrien. Do not scrub or soak the incision. Things To Watch For: * Drainage from the incision site that occurs more than one week after your surgery. * Increased redness at the incision site. * Fever above 102 degrees Fahrenheit. * Unusual chest pain or shortness of breath. * Call [facility] at with any of the above problems Follow-Up Visit: Follow-up with Dr. Peña 2-3 weeks after your day of surgery. An appointment was probably scheduled when you signed-up for surgery in the office. If you have any questions call Office Instructions: More detailed instructions as well as Frequently Asked Questions were provided in a folder by our office when you signed-up for surgery. Please review these instructions when you get home. If you have any further questions or concerns, please feel free to call the office at [phone] Current Hospital Diet Patient's current hospital diet: Diabetes Type 2 Diet Discharge Diet Recommended Diet: Diabetes Type 2 Diet Procedures Procedures Performed: Right Anterior Total Hip Arthroplasty Pending Studies Studies pending at discharge: no Laboratory Results Hemoglobin A1c Test 05/22/17 05:56 Range/Units Estimated Average Glucose 140 mg/dl Hemoglobin A1c 6.5 H 4.5-5.6 % Medical Emergencies . Who to Call and When: Medical Emergencies: If at any time you feel your situation is an emergency, please call 911 immediately. . Non-Emergent Contact Non-Emergency issues call your: Surgeon Call Non-Emergent contact if: wound has increased drainage, wound has increased redness . "Provider Documentation" section prepared by Cameron Peña. . VTE Core Measure Inpt VTE Proph given/why not?: Other Anticoagulation (Aspirin 325 twice a day for 6 weeks)
[2017-05-22] MEDS: CARVEDILOL 12.5 MG TAB PO SCH ×2 (08:54→21:52)
[2017-05-22] MEDS: DOCUSATE SODIUM 100 MG CAP PO SCH ×2 (08:54→21:51)
--- NOTE | 2017-05-22 08:54 | PROGRESS NOTE ---
DATE: 05/22/2017 CHIEF COMPLAINT: Status post right total hip arthroplasty, postop day #1. PROGRESS: Ray was seen and examined at bedside today. Overall, he is doing very well. He was up and ambulating to the bathroom last night because he has very little pain in his hip and has no complaints. PHYSICAL EXAMINATION: RIGHT HIP: The dressing is clean and dry and the drain is to suction. His leg lengths are equal. He has active dorsiflexion and plantarflexion of his right ankle and sensation is intact on his quad. LABORATORY DATA: He has an H&H today of 11.4 and 32.6. His glucose is fluctuant, but currently 140. His vital signs are all mostly stable on room air. He is a little hypertensive and he is voiding on his own and has already had a bowel movement. X-rays postoperatively of the right hip show the prosthesis to be in an anatomical alignment without any evidence of fracture, dislocation or loosening. IMPRESSION: Status post right total hip arthroplasty postop day #1. PLAN: At this point, he is doing as well as expected. He will be seen by physical therapy today. Tomorrow morning, the nurses can change the dressing, pull the drain and he is scheduled for discharge to home with [facility] tomorrow.
[2017-05-22] MEDS: ASPIRIN 325 MG ECTAB PO SCH ×2 (08:55→21:52)
[2017-05-22] MEDS: VENLAFAXINE HCL XR 75 MG CAPXR PO SCH (08:56)
[2017-05-22] MEDS: POTASSIUM CHLORIDE 20 MEQ TABCR PO SCH ×2 (08:56→21:54)
[2017-05-22] MEDS: PANTOprazole SOD 40 MG TAB PO SCH (08:57)
[2017-05-22] MEDS: ENALAPRIL MALEATE 10 MG TAB PO SCH (08:57)
[2017-05-22] MEDS: MULTIVITAMIN TAB PO SCH (08:57)
[2017-05-22] MEDS: FUROSEMIDE 40 MG TAB PO SCH ×2 (08:57→18:02)
[2017-05-22] MEDS ORDERED: CARBONYL IRON PO SCH (09:00)
[2017-05-22] MEDS: INSULIN ASPART 100 UNITS/ML 3 ML PEN SC SCH ×4 (09:05→21:00)
[2017-05-22] MEDS: ISOSORBIDE MONONITRATE 30 MG TABCR PO SCH (10:04)
[2017-05-22] MEDS: ACETAMINOPHEN 500 MG TAB PO SCH ×2 (13:40→21:57)
[2017-05-22] MEDS: TAMSULOSIN HCL 0.4 MG CAP PO SCH (21:52)
[2017-05-22] MEDS: CLONAZEPAM 0.5 MG TAB PO SCH (21:53)
[2017-05-22] MEDS: FINASTERIDE 5 MG TAB PO SCH (21:54)
[2017-05-22] MEDS: SENNA 8.6 MG TAB PO SCH (21:55)
[2017-05-22] MEDS: ATORVASTATIN 40 MG TAB PO SCH (21:55)
[2017-05-23] MEDS: ACETAMINOPHEN 500 MG TAB PO SCH (06:02)
[2017-05-23] MEDS: KETOROLAC TROMETHAMINE 15 MG/ML VIAL IV. SCH (06:02)
[2017-05-23 07:03] VITALS: BP 121/64; PULSE 58; TEMP 36.6; O2SAT 95
[2017-05-23] MEDS ORDERED: METFORMIN HCL 500 MG TAB PO SCH (09:00)
[2017-05-23] MEDS: FUROSEMIDE 40 MG TAB PO SCH (09:15)
[2017-05-23] MEDS ORDERED: RXC5 PO (09:16)
[2017-05-23] MEDS ORDERED: ASPEC325 PO (09:16)
[2017-05-23] MEDS: VENLAFAXINE HCL XR 75 MG CAPXR PO SCH (09:19)
[2017-05-23] MEDS: ASPIRIN 325 MG ECTAB PO SCH (09:19)
[2017-05-23] MEDS: POTASSIUM CHLORIDE 20 MEQ TABCR PO SCH (09:19)
[2017-05-23] MEDS: ENALAPRIL MALEATE 10 MG TAB PO SCH (09:20)
[2017-05-23] MEDS: PANTOprazole SOD 40 MG TAB PO SCH (09:20)
[2017-05-23] MEDS: DOCUSATE SODIUM 100 MG CAP PO SCH (09:20)
[2017-05-23] MEDS: MULTIVITAMIN TAB PO SCH (09:20)
[2017-05-23] MEDS: CARVEDILOL 12.5 MG TAB PO SCH (09:21)
[2017-05-23] MEDS: ISOSORBIDE MONONITRATE 30 MG TABCR PO SCH (09:21)
[2017-05-23] MEDS: INSULIN ASPART 100 UNITS/ML 3 ML PEN SC SCH (09:29)
--- NOTE | 2017-05-23 09:41 | PROGRESS NOTE ---
DATE: 05/23/2017 CHIEF COMPLAINT: Status post right total hip arthroplasty postop day #2. PROGRESS: Ray was seen and examined at bedside today. Overall, he is doing very well. He was sitting up comfortably in a chair. He has been ambulating well with physical therapy. He really has no pain and no complaints. PHYSICAL EXAMINATION: RIGHT HIP: The dressing has been changed, the drain has been pulled. His leg lengths are equal. He has active dorsiflexion and plantarflexion of his right ankle. His sensation is intact with his quad. IMPRESSION: Status post right total hip arthroplasty postop day #2. PLAN: At this point, he is doing very well and happy with his progress. He has very little pain in the hip. He is on aspirin for DVT prophylaxis. He will be seen by physical therapy this morning and we will discharge him to home around noon.
--- NOTE | 2017-05-23 10:31 | DISCHARGE SUMMARY ---
DISCHARGE DIAGNOSIS: Primary osteoarthritis of the right hip. PROCEDURE: Right total hip arthroplasty on 05/21/[address] Cameron Peña. DISCHARGE INSTRUCTIONS: 1. Aspirin 325 mg twice a day for 6 weeks. 2. TAY hose stockings for 6 weeks. 3. Oxycodone 5-10 mg every 4 hours as needed for pain. 4. Tylenol 650 mg every 8 hours. 5. Lipitor 40 mg daily. 6. Benazepril 20 mg daily. 7. Feosol 45 mg daily. 8. Coreg 12.5 mg twice a day. 9. Clonazepam 0.25 mg at night. 10. Proscar 5 mg daily. 11. Lasix 40 mg twice a day. 12. Hydralazine 50 mg 3 times a day. 13. Isosorbide 30 mg daily. 14. Glucophage 500 mg daily. 15. Metolazone 5 mg as needed. 16. Flomax 0.4 mg daily. 17. Effexor 75 mg daily. 18. Follow up with Dr. Peña in 2 weeks. 19. Call the office of Dr. Peña with any questions or concerns. HOSPITAL COURSE: Ray is a pleasant 76-year-old male who presented to my office with complaints of chronic right hip pain. X-rays and clinical examination were diagnostic for primary osteoarthritis of the right hip. After failing extensive conservative treatment, he elected to undergo a right total hip arthroplasty. On 05/21/2017, he arrived at [facility] and underwent a right hip replacement without complications. He had a spinal anesthetic. Postoperatively, he was discharged to general orthopedic floor. He was started on aspirin 325 mg twice a day for DVT prophylaxis. His hospital course was uneventful. On postop day #1, his H&H was stable at 11.4 and 32.6. His vital signs were all stable. He was able to get up and ambulate well with physical therapy. His pain was well controlled. On postop day #2, he continued to do well. He had very little pain in his hip. He was subsequently discharged to home on oral pain medications and the above instructions.
[2017-05-23 10:35] VITALS: BP 121/64; PULSE 58; TEMP 36.6; O2SAT 95
== END 2017-05-23 11:11 | disposition home health service (06) | DRG 470 ==
LOC: C.ACU 05:00 → C.3E 06:15 → ENRESERV 10:05
PROVIDERS: ADMIT Orthopaedic Surgery; ATTEND Orthopaedic Surgery
PROC: 0SR904Z Replacement of Right Hip Joint with Ceramic on Polyethylene Synthetic Substitute, Open Approach (ICD-10-PCS; principal; 2017-05-21 07:00)
DX: M16.11 Unilateral primary osteoarthritis, right hip (principal); E11.9 Type 2 diabetes mellitus without complications; I10 Essential (primary) hypertension; I25.2 Old myocardial infarction; Z95.0 Presence of cardiac pacemaker; Z79.82 Long term (current) use of aspirin

== ENCOUNTER → 2017-07-19 | Outpatient (CLI) | payer BC ==
[~2017-07-19] MED LIST changes: +ACET1TAB84 PO; +ASPEC325 PO; -ASPI81TA28 PO; +RXC5 PO
[2017-07-19 17:41] LABS: URINE APPEARANCE CLEAR (CLEAR); URINE BILIRUBIN NEG (NEG); URINE COLOR YELLOW; URINE NITRITE POS (NEG); URINE SPECIFIC GRAVITY 1.015 (1.000-1.030); UROBILINOGEN NEG (NEG)
[2017-07-19 17:45] LABS: MANUAL MICROSCOPIC REQUIRED? NO; REVIEW REQ? NO
[2017-07-19 18:07] LABS: CREATININE, URINE 19.5 mg/dl; URINE TOTAL PROTEIN < 5.0 mg/dl (0-11.9)
[2017-07-20 07:48] LABS: ESTIMATED AVERAGE GLUCOSE 123 mg/dl; HA1C FLAG Normal (Normal)
== END | disposition home or self-care (01) ==
LOC: C.LABPBG 15:34
PROVIDERS: ATTEND Internal Medicine
DX: I10 Essential (primary) hypertension (principal); E55.9 Vitamin D deficiency, unspecified; N18.3 Chronic kidney disease, stage 3 (moderate); D64.9 Anemia, unspecified; E11.22 Type 2 diabetes mellitus with diabetic chronic kidney disease

== ENCOUNTER → 2017-08-20 | Outpatient (CLI) | payer BC ==
[~2017-08-20] MED LIST changes: -APR50; +APR50 PO; +ASPI81TA28 PO; +POTA-639 PO
[2017-08-20 16:48] LABS: HEMATOCRIT 41.5 % (42-52); HEMOGLOBIN 14.1 g/dL (14.0-18.0); MEAN CORPUSCULAR HEMOGLOBIN 30.9 pg (25-34); MEAN PLATELET VOLUME 10.2 fL (7.4-10.4); PLATELET COUNT 145 K/uL (130-400); RED CELL DISTRIBUTION WIDTH CV 13.9 % (11.5-14.5); RED CELL DISTRIBUTION WIDTH SD 46.3 fL (36.4-46.3); WHITE BLOOD COUNT 4.88 K/uL (4.8-10.8)
[2017-08-20 17:47] LABS: BLOOD UREA NITROGEN 28 mg/dl (7-18); CALCIUM 8.5 mg/dl (8.5-10.1); CARBON DIOXIDE 25 mmol/L (21-32); CREATININE 1.21 mg/dl (0.60-1.40); GLUCOSE 123 mg/dl (70-99); POTASSIUM 3.9 mmol/L (3.5-5.1); SODIUM 140 mmol/L (136-145)
[2017-08-20 17:52] LABS: ALT/SGPT 53 U/L (12-78); AST/SGOT 55 U/L (15-37); CHOLESTEROL 113 mg/dl (0-200); LDL CHOLESTEROL CALCULATED 64 mg/dl
== END | disposition home or self-care (01) ==
LOC: C.LABPBG 11:50
PROVIDERS: ATTEND Internal Medicine Cardiovascular Disease
DX: I11.0 Hypertensive heart disease with heart failure (principal); E78.5 Hyperlipidemia, unspecified; I25.5 Ischemic cardiomyopathy; I50.22 Chronic systolic (congestive) heart failure; I34.0 Nonrheumatic mitral (valve) insufficiency; I25.10 Atherosclerotic heart disease of native coronary artery without angina pectoris

== ENCOUNTER → 2017-08-31 | Outpatient (CLI) | payer BC ==
[~2017-08-31] MED LIST changes: +APR50; -APR50 PO; -ASPI81TA28 PO; -POTA-639 PO
[2017-08-31 17:46] LABS: BLOOD UREA NITROGEN 25 mg/dl (7-18); CALCIUM 8.7 mg/dl (8.5-10.1); CARBON DIOXIDE 29 mmol/L (21-32); CREATININE 1.27 mg/dl (0.60-1.40); GLUCOSE 166 mg/dl (70-99); POTASSIUM 3.7 mmol/L (3.5-5.1); SODIUM 142 mmol/L (136-145)
== END | disposition home or self-care (01) ==
LOC: C.LABPBG 11:31
PROVIDERS: ATTEND Internal Medicine Cardiovascular Disease
DX: I25.5 Ischemic cardiomyopathy (principal); I25.10 Atherosclerotic heart disease of native coronary artery without angina pectoris

== ENCOUNTER → 2017-11-26 | Day surgery (SDC) | payer BC ==
[2017-11-18 15:15] VITALS: BMI 33.0
[~2017-11-26] VITALS: Ht 167.6 cm; Wt 93.6 kg
[~2017-11-26] MED LIST changes: -ACET1TAB84 PO; -APR50; +APR50 PO; -ASPEC325 PO; +ASPI81TA28 PO; +LIDOCAINE HCL 2% 2 ML VIAL (20MG/ML) ONE; -MCRK20 PO; +POTA-639 PO; +PROPOFOL IV EMULSION 10 MG/ML 20 ML VIAL IV ONE; -RXC5 PO; +SODIUM CHLORIDE 0.9% 500ML 500 ML IV ONE
[2017-11-26 10:32] VITALS: Ht 167.6 cm; Wt 93.6 kg
[2017-11-26 10:37] VITALS: TEMP 36.5
--- NOTE | 2017-11-26 11:18 | Endo History and Physical ---
History & Physical Date of Service: Nov 26, 2017. Chief Complaint: HX OF POLYPS Referring Physician: DR CATHY LI History of Present Illness 77 yo CM who presents for colonoscopy secondary to history of colon polyps. Past Medical History Diabetes, Pacemaker, High Cholesterol, Sleep Apnea, Heart Disease, CHF, Hypertension, Kidney Disease Past Surgical History Hx Cardiac Surgery: Yes (HEART CATH AND NO STENT 2011,PACEMAKER 2013) Hx Internal Defibrillator: No Hx Pacemaker: Yes (MEDTR[employer]IC PACEMAKER 03/2014) Hx Abdominal Surgery: Yes (HERNIA REPAIR) Hx of Implantable Prosthesis: No Hx Post-Op Nausea and Vomiting: No Hx Cancer Surgery: Yes (BASAL CELL NOSE) Hx Thoracic Surgery: No Hx Orthopedic: Yes (LEFT KNEE ARTHROSCOPY,R CTR, R JERAMIE) Hx Urinary Tract Surgery: No Family History None Social History Smoking Status: Never Smoker Hx Substance Use: No Hx Alcohol Use: No Allergies Coded Allergies: Morphine (Verified Adverse Reaction, Severe, N/V, 11/26/17) confirmed with pt this am Current Medications Reported Home Medications Medications Dose Route/Sig Max Daily Dose Days Date Category Klor-Con (Potassium Chloride) 20 Meq Tabcr 20 Meq PO QPM 11/18/17 Reported Aspirin Ec (Aspirin) 81 Mg Tab 81 Mg PO QAM 11/18/17 Reported Proscar (Finasteride) 5 Mg Tab 5 Mg PO QPM 05/03/17 Reported Flomax (Tamsulosin Hcl) 0.4 Mg Cap 0.4 Mg PO QPM 05/03/17 Reported Effexor (Venlafaxine Hcl) 75 Mg Tab 75 Mg PO QAM 05/03/17 Reported Feosol (Carbonyl Iron) 45 Mg Tab 1 Tab PO QAM 05/09/15 Reported Coreg (Carvedilol) 12.5 Mg Tab 25 Mg PO BID 05/09/15 Reported Glucophage (Metformin Hcl) 500 Mg Tab 500 Mg PO QAM 04/08/15 Reported Metolazone 5 Mg Tab 5 Mg UD PRN 03/22/14 Reported Isosorbide Mononitrate ER (Isosorbide Mononitrate) 30 Mg Tabcr 30 Mg PO QAM 03/22/14 Reported Hydralazine HCl 50 Mg Tab 50 Mg PO TID 03/22/14 Reported Furosemide 20 Mg Tab 40 Mg PO BID 03/22/14 Reported Clonazepam 0.5 Mg Tab 0.25 Mg PO HS 03/22/14 Reported Lotensin (Benazepril HCl) 20 Mg Tab 30 Mg PO QAM 03/22/14 Reported Lipitor (Atorvastatin Calcium) 40 Mg Tab 40 Mg PO HS 03/22/14 Reported Vital Signs Weight (Kilograms): 93.64 Height (Feet): 5 Height (Inches): 6 Date Time Temp Pulse Resp B/P (MAP) Pulse Ox O2 Delivery O2 Flow Rate FiO2 11/26/17 10:37 36.5 63 18 133/70 (91) 95 Room Air Physical Exam General Appearance: WD/WN, no apparent distress Respiratory/Chest: Auscultation: breath sounds normal Cardiovascular: Heart Auscultation: RRR Abdomen: Bowel Sounds: normal Inspection & Palpation: soft, non-distended, no tenderness, guarding & rebound Assessment and Plan Assessment: 77 yo CM who presents for colonoscopy secondary to history of colon polyps. Plan: Proceed with colonoscopy.
--- NOTE | 2017-11-26 12:20 | Discharge Instructions ---
Endoscopy Patient Instructions Date / Procedure(s) Performed Nov 26, 2017. Colonoscopy Allergy Information Coded Allergies: Morphine (Verified Adverse Reaction, Severe, N/V, 11/26/17) confirmed with pt this am Discharge Date / Findings Nov 26, 2017. Colon polyp Diverticulosis Internal hemorrhoids Medication Instructions OK to resume all medications today as prescribed Reported Home Medications Medications Dose Route/Sig Max Daily Dose Days Date Category Klor-Con (Potassium Chloride) 20 Meq Tabcr 20 Meq PO QPM 11/18/17 Reported Aspirin Ec (Aspirin) 81 Mg Tab 81 Mg PO QAM 11/18/17 Reported Proscar (Finasteride) 5 Mg Tab 5 Mg PO QPM 05/03/17 Reported Flomax (Tamsulosin Hcl) 0.4 Mg Cap 0.4 Mg PO QPM 05/03/17 Reported Effexor (Venlafaxine Hcl) 75 Mg Tab 75 Mg PO QAM 05/03/17 Reported Feosol (Carbonyl Iron) 45 Mg Tab 1 Tab PO QAM 05/09/15 Reported Coreg (Carvedilol) 12.5 Mg Tab 25 Mg PO BID 05/09/15 Reported Glucophage (Metformin Hcl) 500 Mg Tab 500 Mg PO QAM 04/08/15 Reported Metolazone 5 Mg Tab 5 Mg UD PRN 03/22/14 Reported Isosorbide Mononitrate ER (Isosorbide Mononitrate) 30 Mg Tabcr 30 Mg PO QAM 03/22/14 Reported Hydralazine HCl 50 Mg Tab 50 Mg PO TID 03/22/14 Reported Furosemide 20 Mg Tab 40 Mg PO BID 03/22/14 Reported Clonazepam 0.5 Mg Tab 0.25 Mg PO HS 03/22/14 Reported Lotensin (Benazepril HCl) 20 Mg Tab 30 Mg PO QAM 03/22/14 Reported Lipitor (Atorvastatin Calcium) 40 Mg Tab 40 Mg PO HS 03/22/14 Reported Provider Instructions Activity Restrictions - No exercising or heavy lifting for 24 hours. - Do not drink alcohol the day of the procedure. - Do not drive a car or operate machinery until the day after the procedure. - Do not make any important decisions or sign important papers in 24 hours after the procedure. Following Day: - Return to full activity which may include returning to work/school. Diet Start your diet with liquids and light foods (jello, soup, juice, toast). Then eat your usual diet if not nauseated. Treatment For Common After Affects For mild abdominal pain, bloating, or excessive gas: - Rest - Eat lightly - Lie on right side Follow-Up Information Follow-up with DR CATHY LI as scheduled Anesthesia Information What You Should Know You have had a procedure that required some medicine to reduce anxiety and discomfort. This treatment is called moderate sedation. After receiving the treatment, you may be sleepy, but you will be able to breathe on your own. The effects of the treatment may last for several hours. Follow these instructions along with Activity/Diet recommendations noted above: * Do NOT do anything where dizziness or clumsiness would be dangerous. * Rest quietly at home today, then you can be up and about tomorrow. * Have a responsible person stay with you the rest of today. * You may have had an I.V. today. If so, you may take the dressing off later today. Recommendations Call your doctor if: * Trouble breathing * Continuous vomiting for more than 24 hours * Temperature above 101 degrees * Severe abdominal pain or bloating * Pain not relieved by pain medicine ordered * There is increased drainage or redness from any incision * A large amount of rectal bleeding greater than 2-3 tablespoons. (If you had a polyp/s removed or have hemorrhoids, a small amount of blood - from the rectum is to be expected.) * You have any unanswered questions or concerns. IN THE EVENT OF A SERIOUS EMERGENCY, GO TO THE NEAREST EMERGENCY ROOM Your discharge instructions were prepared by provider Ronnie Carroll. Patient Instructions Signature Page Ray Gee Patient (or Guardian) Signature/Date: I have read and understand the instructions given to me by my caregivers. Caregiver/RN/Doctor Signature/Date: The above-named patient and/or guardian has received patient instructions on this date. + Original Patient Signature Page (only) stays with chart. Please make copy for patient.
--- NOTE | 2017-11-26 12:24 | GI REPORT ---
Procedure Date: 11/26/2017 11:23 AM Procedure: Colonoscopy Indications: High risk colon cancer surveillance: Personal history of colonic polyps Medicines: Monitored Anesthesia Care Complications: No immediate complications. Estimated Blood Loss: Estimated blood loss: none. Procedure: Pre-Anesthesia Assessment: - Prior to the procedure, a History and Physical was performed, and patient medications and allergies were reviewed. The patient's tolerance of previous anesthesia was also reviewed. The risks and benefits of the procedure and the sedation options and risks were discussed with the patient. All questions were answered, and informed consent was obtained. Prior Anticoagulants: The patient has taken aspirin, last dose was 3 days prior to procedure. ASA Grade Assessment: III - A patient with severe systemic disease. After reviewing the risks and benefits, the patient was deemed in satisfactory condition to undergo the procedure. After I obtained informed consent, the scope was passed under direct vision. Throughout the procedure, the patient's blood pressure, pulse, and oxygen saturations were monitored continuously. The scope was introduced through the anus and advanced to the cecum, identified by appendiceal orifice and ileocecal valve. The colonoscopy was performed without difficulty. The patient tolerated the procedure well. The quality of the bowel preparation was fair. The ileocecal valve, appendiceal orifice, and rectum were photographed. Findings: The perianal and digital rectal examinations were normal. A 5 mm polyp was found in the ascending colon. The polyp was sessile. The polyp was removed with a hot snare. Resection and retrieval were complete. Multiple small-mouthed diverticula were found in the sigmoid colon. Non-bleeding internal hemorrhoids were found during retroflexion. The hemorrhoids were small. Impression: - Preparation of the colon was fair. - One 5 mm polyp in the ascending colon, removed with a hot snare. Resected and retrieved. - Diverticulosis in the sigmoid colon. - Non-bleeding internal hemorrhoids. Recommendation: - Resume previous diet. - Continue present medications. - Repeat colonoscopy for surveillance based on pathology results. - Return to primary care physician as previously scheduled. Ronnie Carroll DO 11/26/2017 12:24:20 PM This report has been signed electronically. Note Initiated On: 11/26/2017 11:23 AM I attest to the content of the Intraoperative Record and orders documented therein, exceptions below
[2017-11-26 12:49] VITALS: BP 164/88; PULSE 62; O2SAT 95
--- NOTE | 2017-11-26 13:40 | Anesthesiology Progress Note ---
Anesthesia Post Op Note Date & Time Nov 26, 2017 at 13:39 Vital Signs Pain Intensity: 0 Vital Signs Past 12 Hours Date Time Temp Pulse Resp B/P (MAP) Pulse Ox O2 Delivery O2 Flow Rate FiO2 11/26/17 12:49 62 20 164/88 (113) 95 Room Air 11/26/17 12:34 63 20 127/95 (106) 94 Room Air 11/26/17 12:19 75 20 148/69 (95) 95 Room Air 11/26/17 10:37 36.5 63 18 133/70 (91) 95 Room Air Notes Mental Status: alert / awake / arousable, participated in evaluation Pt Amnestic to Procedure: Yes Nausea / Vomiting: adequately controlled Pain: adequately controlled Airway Patency, RR, SpO2: stable & adequate BP & HR: stable & adequate Hydration State: stable & adequate Anesthetic Complications: no major complications apparent
== END | disposition home or self-care (01) ==
LOC: C.GI 10:03
PROVIDERS: ATTEND Internal Medicine
DX: Z12.11 Encounter for screening for malignant neoplasm of colon (principal); D12.2 Benign neoplasm of ascending colon; K57.30 Diverticulosis of large intestine without perforation or abscess without bleeding; K64.8 Other hemorrhoids; Z86.010 Personal history of colon polyps; E11.9 Type 2 diabetes mellitus without complications; I11.0 Hypertensive heart disease with heart failure; I50.9 Heart failure, unspecified; M19.90 Unspecified osteoarthritis, unspecified site; I25.2 Old myocardial infarction; E66.9 Obesity, unspecified; Z88.5 Allergy status to narcotic agent; Z79.82 Long term (current) use of aspirin

== ENCOUNTER → 2018-03-17 | Outpatient (CLI) | payer BC ==
[~2018-03-17] MED LIST changes: -LIDOCAINE HCL 2% 2 ML VIAL (20MG/ML) ONE; -PROPOFOL IV EMULSION 10 MG/ML 20 ML VIAL IV ONE; -SODIUM CHLORIDE 0.9% 500ML 500 ML IV ONE
[2018-03-17 13:45] LABS: BASO % 0.6 %; BASO ABS # 0.03 K/uL (0-0.2); EOS % 2.7 %; EOS ABS # 0.14 K/uL (0-0.5); HEMATOCRIT 41.5 % (42-52); HEMOGLOBIN 14.3 g/dL (14.0-18.0); IG# 0.01 K/uL (0.00-0.02); LYMPH % 27.5 %; LYMPH ABS # 1.44 K/uL (1.2-3.4); MEAN CELL VOLUME 89.1 fL (80-100); MEAN CORPUSCULAR HEMOGLOBIN 30.7 pg (25-34); MEAN CORPUSCULAR HGB CONC 34.5 g/dl (32-36); MONO % 11.3 %; MONO ABS # 0.59 K/uL (0.11-0.59); NEUT % 57.7 %; NEUT ABS # 3.03 K/uL (1.4-6.5); PLATELET COUNT 153 K/uL (130-400); RED CELL DISTRIBUTION WIDTH CV 13.9 % (11.5-14.5); RED CELL DISTRIBUTION WIDTH SD 45.6 fL (36.4-46.3); WHITE BLOOD COUNT 5.24 K/uL (4.8-10.8)
[2018-03-17 14:03] LABS: ALBUMIN 3.6 gm/dl (3.4-5.0); ALKALINE PHOSPHATASE 98 U/L (45-117); ALT/SGPT 28 U/L (12-78); AST/SGOT 23 U/L (15-37); BLOOD UREA NITROGEN 26 mg/dl (7-18); CALCIUM 8.4 mg/dl (8.5-10.1); CARBON DIOXIDE 26 mmol/L (21-32); CHOLESTEROL 123 mg/dl (0-200); CREATININE 1.31 mg/dl (0.60-1.40); GLUCOSE 145 mg/dl (70-99); LDL CHOLESTEROL CALCULATED 64 mg/dl; POTASSIUM 3.6 mmol/L (3.5-5.1); SODIUM 141 mmol/L (136-145); TOTAL PROTEIN 6.7 gm/dl (6.4-8.2)
[2018-03-17 14:35] LABS: HEMOGLOBIN A1C 6.7 % (4.5-5.6)
== END | disposition home or self-care (01) ==
LOC: C.LABPBG 10:47
PROVIDERS: ATTEND Internal Medicine
DX: I12.9 Hypertensive chronic kidney disease with stage 1 through stage 4 chronic kidney disease, or unspecified chronic kidney disease (principal); E11.22 Type 2 diabetes mellitus with diabetic chronic kidney disease; N18.3 Chronic kidney disease, stage 3 (moderate); E78.5 Hyperlipidemia, unspecified; I25.5 Ischemic cardiomyopathy; E55.9 Vitamin D deficiency, unspecified; I48.92 Unspecified atrial flutter; I25.10 Atherosclerotic heart disease of native coronary artery without angina pectoris; F32.9 Major depressive disorder, single episode, unspecified; Z95.0 Presence of cardiac pacemaker

== ENCOUNTER 2018-10-20 07:23 | Observation (INO) ==
[~2018-10-20 07:23] MED LIST changes: -APR50 PO; -ASPI81TA28 PO; -ATOR-24 PO; -BENA20TA14 PO; -CARB1TAB29 PO; -CARV12.52 PO; +CEFAZOLIN 2000MG 2,000 MG/15 ML SYR IV SCH; -EFF75 PO; -FINA5TAB PO; -GLC/500 PO; -IMDSR30 PO; -KLN5 PO; +LR 15ML/HR IV SCH; -LSX20 PO; -POTA-639 PO; -TAMS0.4C38 PO; -ZRX5
[2018-10-20] MEDS ORDERED: fentaNYL citrate 100 MCG/2 ML VIAL ONE (09:25)
[2018-10-20] MEDS ORDERED: MIDAZOLAM HCL 5 MG/ML 1 ML VIAL ONE (09:25)
[2018-10-20] MEDS ORDERED: CEFAZOLIN 250 MG/ML 1 GM VIAL ONE (09:26)
[2018-10-20] MEDS ORDERED: BACITRACIN INJ 50,000 UNIT VIAL ONE (09:30)
[2018-10-20] MEDS ORDERED: BACITRACIN OINT 0.9 GM PKT ONE (09:30)
[2018-10-20] MEDS ORDERED: LIDOCAINE HCL 1% 20 ML VIAL ONE (09:30)
--- NOTE | 2018-10-20 09:46 | History & Physical Bridge Note ---
Date of Service October 20, 2018 History & Physical Bridge Note I have examined the patient, reviewed the History & Physical and in the interval since the performance of the History & Physical I have noted the following changes of clinical significance: no changes noted. I reviewed the indications, procedure, risks and alternatives of upgrade to a biventricular ICD and he understand and agrees to proceed. Consent obtained. I also reviewed sedation with him and he understands and agrees. Consent obtained.
--- NOTE | 2018-10-20 09:47 | Pre Anesthesia Assessment ---
Date of Service October 20, 2018 Pre Sedation Assessment Vital Signs Temp Pulse Resp BP Pulse Ox 10/20/18 07:44 36.6 C 72 16 155/86 H 96 Pre-Sedation Airway Assessment Smoking Status: Never smoker Hx Sleep Apnea: No Short, Thick Neck: No Thyromental Distance: > or= 3.5 Finger Breadths Oral Cavity: + WNL Mallampati Class: III ASA: ASA3 Notes The planned sedation has been discussed with the patient. Informed Consent was obtained. I have identified the patient, determined the appropriateness of sedation and have assessed the patient immediately prior to the procedure. All medicine(s) and interventions are by my order.
--- NOTE | 2018-10-20 12:48 | Operative Report ---
Post Operative Report Pre & Post Diagnosis Operation Date: 10/20/18 09:00 Preoperative diagnosis: Cardiomyopathy, ventricular paced rhythm Postoperative diagnosis: Same Procedure Operation Date: 10/20/18 09:00 Actual Procedures p Upgrade pacer to ICD- Josef Okeefe MD s Insertion ICD w/Existing Dual - Josef Okeefe MD s Venogram, Unilateral - Josef Okeefe MD Surgeon Josef Okeefe MD Fish Protector None Estimated Blood Loss 100 Findings See Below Although there were good vessels seen on coronary sinus angiography, we were unable to access the os of the posterolateral vessel, and inferior vessel was cannulated and a catheter placed in that vessel however there was no capture at full output therefore the lead was removed. In addition it appeared that the posterior lateral vessel was perforated on one occasion with the guidewire and there may be a small pericardial effusion. There were no hemodynamic consequences. Specimens Old pacemaker, return to [employer]tr[employer] Complications Coronary sinus vessel perforation, possible small pericardial effusion without hemodynamic compromise Disposition Accompanied Patient To Recovery: No Disposition: PCU Description of Procedure After obtaining informed consent for the procedure, the patient was placed on the table and a left subclavian venogram was performed using the left arm IV site. The left subclavian vein was found to be patent. He was prepped and draped in the standard sterile manner. The left prepectoral region was anesthetized with 1% lidocaine local anesthetic and left axillary venipuncture was performed by percutaneous technique and a guidewire placed through the left subclavian vein into the superior vena cava. The area was further infiltrated with 1% lidocaine local anesthetic and a 3 cm incision was made through the old implant scar and carried down to the anterior pectoralis fascia. The pacemaker pocket was not entered at this time. A 10.5 Upper Sorbian Medtronic lead introducer was placed over the guidewire into the left subclavian vein, the dilator and guidewire were removed and a bipolar active fixation steroid tipped ventricular ICD lead was advanced through the introducer into the superior vena cava. A guidewire was placed through the i ntroducer and the introducer was stripped from the lead and guidewire. Using a curved stylette the ventricular lead was advanced through the right ventricular outflow tract into the pulmonary artery and then using a straight stylette was positioned in the right ventricular apex. The screw was extended fixing the lead in position. Pacing and sensing thresholds were evaluated in bipolar configuration and are recorded on the implant data sheet. Diaphragmatic pacing was evaluated at a 10 V bipolar output as indicated on the data sheet. Once the ventricular lead was in position it was attached to the anterior pectoralis fascia using 1 suture of 2-0 silk around the lead collar. The short guidewire was exchanged for a long guidewire and a [place] coronary sinus sheath was advanced to position in the right atrium. The curved obturator was placed through the sheath and using x-ray dye the os of the coronary sinus was identified. A guidewire was placed through the introducer into the coronary s inus and the [place] sheath was advanced into the coronary sinus. A balloon occlusion catheter was advanced through this sheath into the coronary sinus, the balloon was inflated and dye was injected in various projections to obtain a coronary sinus angiogram. A good posterolateral vessel was identified and attempts were made to cannulate the vessel however it was unsuccessful in the office of the vessel was never identified. The guidewire may have perforated the coronary sinus at this point but there were no hemodynamic consequences. A low-lying coronary sinus vessel was also identified, this vessel was cannulated and a coronary sinus catheter was advanced to distal position in this vessel. At full output no pacing was obtained therefore this lead was removed. The coronary sinus sheath system was removed from the left subclavian vein. Another suture of 2-0 silk was placed around the right ventricular ICD lead sheath, the incision was enlarged and carried down to the pacemaker and tissue was dissected from the leads. The pacemaker was removed, remain connected to the leads at this point. The pocket was enlarged in the medial and inferior direction to accommodate the larger ICD. The atrial lead was removed from the pacemaker and the chronic atrial lead as well as the new ventricular ICD lead were placed in a new dual-chamber ICD. Once pacing was established the ventricular lead was removed from the pacemaker and the ventricular lead was capped. Hemostasis was obtained, the ICD was placed in the pocket with the leads coiled beneath it. The incision was closed with a running double subcutaneous closure of 3-0 Vicryl absorbable suture, followed by running subcuticular skin closure of 4-0 Vicryl absorbable suture. Bacitracin ointment was placed on the incision and a pressure dressing applied. I attest to the content of the Intraoperative Record and any orders documented therein. Any exceptions are noted below.
[2018-10-20] MEDS ORDERED: KETOROLAC TROMETHAMINE 10 MG TABLET PO PRN (12:50)
[2018-10-20] MEDS ORDERED: ACETAMINOPHEN 325 MG TAB PO PRN (12:50)
[2018-10-20] MEDS: HydrALAZINE TAB 50 MG TAB PO SCH ×2 (14:40→21:24)
[2018-10-20] MEDS: POTASSIUM CHLORIDE 20 MEQ TABCR PO SCH ×2 (16:38→21:25)
[2018-10-20] MEDS ORDERED: ATORVASTATIN 40 MG TAB PO SCH (21:00)
[2018-10-20] MEDS ORDERED: clonazePAM 0.5 MG TAB PO SCH (21:00)
[2018-10-20] MEDS ORDERED: TAMSULOSIN HCL 0.4 MG CAP PO SCH (21:00)
[2018-10-20] MEDS ORDERED: FINASTERIDE 5 MG TAB PO SCH (21:00)
[2018-10-20] MEDS: FUROSEMIDE 40 MG TAB PO SCH (21:21)
[2018-10-20] MEDS: SACUBITRIL-VALSARTAN 49/51 MG TAB PO SCH (21:22)
[2018-10-20] MEDS: CARVEDILOL 25 MG TAB PO SCH (21:24)
[2018-10-21 04:59] LABS: Hematocrit (blood only) 37.9 % (42-52); Hemoglobin 13.1 g/dL (14.0-18.0); Mean Corpuscular Hgb Conc 34.6 g/dL (32-36); Mean Corpuscular Volume 89.8 fL (80-100); Mean Platelet Volume 10.2 fL (7.4-10.4); Platelet Count 138 K/uL (130-400); RDW Coefficient of Variation 13.4 % (11.5-14.5); RDW Standard Deviation 44.1 fL (36.4-46.3); Red Blood Count 4.22 M/uL (4.7-6.1); White Blood Count 6.41 K/uL (4.8-10.8)
--- NOTE | 2018-10-21 07:11 | XRay Report ---
TWO VIEW CHEST CLINICAL HISTORY: Status post pacemaker implantation. FINDINGS: PA and lateral chest radiographs are compared to study dated 08/29/2018 and correlated with chest CT dated 04/19/2012. A 3-lead cardiac AICD is new from previous. Leads project over the right atr ial appendage and the ventricles. This partially obscures the left mid chest. The heart is enlarged a nd there is atherosclerotic calcification of the thoracic aorta. There is mild pulmonary vascular con gestion. There is chronic elevation of the right hemidiaphragm and mild bibasilar atelectasis. No air space consolidation or pleural effusion is identified. There is no pneumothorax. The skeletal structu res are osteopenic. The bony thorax appears intact. IMPRESSION: 1. A 3-lead cardiac AICD has been placed as above. No pneumothorax is identified post procedure. 2. Cardiomegaly with mild pulmonary vascular congestion. 3. No airspace consolidation or pleural effusion is identified. Electronically signed by: Castillo Arguello M.D. 10/21/2018 7:10 AM
[2018-10-21] MEDS: HydrALAZINE TAB 50 MG TAB PO SCH (08:24)
[2018-10-21] MEDS: POTASSIUM CHLORIDE 20 MEQ TABCR PO SCH (08:24)
[2018-10-21] MEDS: FUROSEMIDE 40 MG TAB PO SCH (08:24)
[2018-10-21] MEDS: SACUBITRIL-VALSARTAN 49/51 MG TAB PO SCH (08:24)
[2018-10-21] MEDS: CARVEDILOL 25 MG TAB PO SCH (08:25)
[2018-10-21] MEDS ORDERED: FERROUS SULFATE 325 MG TAB PO SCH (09:00)
[2018-10-21] MEDS ORDERED: VENLAFAXINE HCL XR 75 MG CAPXR PO SCH (09:00)
[2018-10-21] MEDS ORDERED: ASPIRIN 81 MG ECTAB PO SCH (09:00)
[2018-10-21] MEDS ORDERED: ISOSORBIDE MONO EXTENDED REL 30 MG TABCR PO SCH (09:00)
--- NOTE | 2018-10-21 09:56 | Discharge Summary ---
Date of Service October 21, 2018 Admission HPI Per Admitting Provider This is a very pleasant 77 year-old gentleman who has a history of coronary artery disease, I believe this was identified when he presented with new onset congestive heart failure on 04/19/2012. Catheterization at that time demonstrated an occluded LAD, probably chronic, and his ejection fraction was 35% with a severely dilated left ventricle. He was treated medically and his ejection fraction as of August 2013 had improved to 45-50%. His heart failure symptoms also have improved with treatment. He subsequently developed fatigue. On beta susana therapy his heart rate was noted to be in the 30s and he went to [place] emergency room, at that time his beta susana was discontinued and his heart rate log which he keeps noted that his heart rate increased into the 70s. Perhaps importantly he doesn't think he felt any better. After a short time however his heart rate returned to the low 40s and he was observed to have 2-1 AV block. In the interim a Holter monitor was done 02/28/2014, his minimum heart rate was 39 and his average was 66 but heart block was not observed. 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 Interestingly with discontinuation of beta blockade his sinus node increased and he developed 2 to 1 AV block. 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 It is certainly an indication for pacemaker implantation We therefore implanted a dual-chamber pacemaker on 03/22/2014. On pacemaker monitoring he had brief episodes of atrial fibrillation identified, however they seemed to brief to warrant anticoagulation. Recently he has been having a lot of difficulty with dyspnea on exertion, much more than in the past. He did not appear to be fluid overloaded so that did not appear to be an explanation. His echocardiogram shows left ventricular dysfunction with ejection fraction of 25-30%. This represents a decline in left ventricular function from August 13, 2017. At the time of his visit here he continues to have difficulty with exertion, it is not worse now than in the recent past but certainly more so than in the distant past. It does interfere with his activities. He has had no lightheadedness or dizziness. Admission Exam (Per Admitting) Constitutional Constitutional: Alert, cooperative and in no distress. HEENT: Unremarkable Neck: No jugular venous distention, carotid pulses are normal and equal bilaterally without bruits. Pulmonary: Clear to auscultation bilaterally. Cardiac: Regular rhythm with a grade 2/6 holosystolic murmur at the apex, no gallop or rub. Abdomen: Soft, nontender with normal bowel sounds. Extremities: No edema. Distal pulses intact. Neurologic: No focal findings. Gait is steady. Skin: No rash, ecchymoses or petechiae. His pacemaker site is well-healed without erythema, swelling or tenderness. Discharge Data Procedures Performed Operation Date: 10/20/18 09:00 Actual Procedures p Upgrade of any system to BIV - Josef Okeefe MD s Insertion ICD w/Existing Dual - Josef Okeefe MD s Venogram, Unilateral - Josef Okeefe MD Hospital Course (1) ICD (implantable cardioverter-defibrillator) in place: Mr. Gee is a pleasant 77-year-old gentleman with a history significant for CAD, ischemic cardiomyopathy, systolic CHF, and second-degree AV block with bifascicular block status post dual-chamber pacemaker who underwent upgrade of his pacemaker to an ICD on 10/20/[address] Okeefe. The procedure was complicated by coronary sinus vessel perforation and small pericardial effusion, but there was no evidence of hemodynamic compromise. Device check following the procedure showed excellent sensing and pacing characteristics. CXR showed good lead placement and no evidence of pneumothorax. He was deemed stable for discharge on 10/21/2018. He will have follow-up in 3 days for incision check and 1 month for device check.
--- NOTE | 2018-10-21 10:00 | Discharge Summary ---
Date of Service October 21, 2018 Admission HPI This is a very pleasant 77 year-old gentleman who has a history of coronary artery disease, I believe this was identified when he presented with new onset congestive heart failure on 04/19/2012. Catheterization at that time demonstrated an occluded LAD, probably chronic, and his ejection fraction was 35% with a severely dilated left ventricle. He was treated medically and his ejection fraction as of August 2013 had improved to 45-50%. His heart failure symptoms also have improved with treatment. He subsequently developed fatigue. On beta susana therapy his heart rate was noted to be in the 30s and he went to [place] emergency room, at that time his beta susana was discontinued and his heart rate log which he keeps noted that his heart rate increased into the 70s. Perhaps importantly he doesn't think he felt any better. After a short time however his heart rate returned to the low 40s and he was observed to have 2-1 AV block. In the interim a Holter monitor was done 02/28/2014, his minimum heart rate was 39 and his average was 66 but heart block was not observed. 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 Interestingly with discontinuation of beta blockade his sinus node increased and he developed 2 to 1 AV block. 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 It is certainly an indication for pacemaker implantation We therefore implanted a dual-chamber pacemaker on 03/22/2014. On pacemaker monitoring he had brief episodes of atrial fibrillation identified, however they seemed to brief to warrant anticoagulation. Recently he has been having a lot of difficulty with dyspnea on exertion, much more than in the past. He did not appear to be fluid overloaded so that did not appear to be an explanation. His echocardiogram shows left ventricular dysfunction with ejection fraction of 25-30%. This represents a decline in left ventricular function from August 13, 2017. At the time of his visit here he continues to have difficulty with exertion, it is not worse now than in the recent past but certainly more so than in the distant past. It does interfere with his activities. He has had no lightheadedness or dizziness. Admission Exam Per Admitting Provider Constitutional: Alert, cooperative and in no distress. HEENT: Unremarkable Neck: No jugular venous distention, carotid pulses are normal and equal bilaterally without bruits. Pulmonary: Clear to auscultation bilaterally. Cardiac: Regular rhythm with a grade 2/6 holosystolic murmur at the apex, no gallop or rub. Abdomen: Soft, nontender with normal bowel sounds. Extremities: No edema. Distal pulses intact. Neurologic: No focal findings. Gait is steady. Skin: No rash, ecchymoses or petechiae. His pacemaker site is well-healed without erythema, swelling or tenderness. Principal Diagnosis Principal Diagnosis Status post upgrade of pacemaker to ICD Discharge Exam Vital Signs (Past 24 Hours): Last Vital Signs Temp 36.7 C 10/21/18 07:24 Pulse 60 10/21/18 07:24 Resp 20 10/21/18 07:24 BP 143/78 H 10/21/18 07:24 Pulse Ox 94 10/21/18 07:24 Physical Exam: The incision looks clean and dry, minor ecchymosis, no swelling Discharge Data Allergies Allergy/AdvReac Type Severity Reaction Status Date / Time morphine AdvReac Severe N/V Verified 10/20/18 07:52 Procedures Performed Operation Date: 10/20/18 09:00 Actual Procedures p Upgrade of any system to BIV - Josef Okeefe MD s Insertion ICD w/Existing Dual - Josef Okeefe MD s Venogram, Unilateral - Josef Okeefe MD Ordered Studies 10/20/18 07:30 EP Lab Images for PACS ONCE Hospital Course (1) ICD (implantable cardioverter-defibrillator) in place: Mr. Gee is a pleasant 77-year-old gentleman with a history significant for CAD, ischemic cardiomyopathy, systolic CHF, and second-degree AV block with bifascicular block status post dual-chamber pacemaker who underwent upgrade of his pacemaker to an ICD on 10/20/[address] Okeefe. The procedure was complicated by coronary sinus vessel perforation and small pericardial effusion, but there was no evidence of hemodynamic compromise. Device check following the procedure showed excellent sensing and pacing characteristics. CXR showed good lead placement and no evidence of pneumothorax. He was deemed stable for discharge on 10/21/2018. He will have follow-up in 3 days for incision check and 1 month for device check. Total Time Total Time Spent Total Time Spent (In Minutes): 30 minutes Discharge Plan Discharge Items Patient Disposition: Home - Self-Care Reason For Visit: Cardiomyopathy, ventricular paced rhythm Discharge Diagnosis: Status post upgrade from pacemaker to ICD Discharge Goals: Improve disease control Activity: Per 'Additional Instructions' section Non-emergency contact: Primary Care Provider and Search Marketing Coordinator Call non-emergency contact if: you have any medication questions, your pain is not controlled, you have a fever, your wound has increased redness and your wound has increased drainage Follow-up/Referrals: Jeronimo Denton MD [Primary Care Provider] - Diet: Heart Healthy Addtl Provider Instructions: ACTIVITY RECOMMENDATIONS: * Do not raise affected arm over head for 2 weeks. SPECIAL CARE INSTRUCTIONS: * If bleeding occurs, apply direct pressure to area for 5 minutes. * Call your doctor if you have severe pain, fever, drainage or bleeding at site. * Keep dressing on and dry for 48 hours then remove. * Keep any scheduled doctor's appointment. * Implant Card - hand held device with website information given. SKIN IRRITATION: * You may experience some redness and/or swelling in the area where radiation was administered. If any skin irritation occurs, please contact your family physician. FOLLOW UP VISIT: 10/24/2018 @ 11:00 am for incision check 11/16/2018 @ 1:30 pm for device check Prescriptions: Continued ATORVASTATIN (LIPITOR) 40 MG tablet 40 mg PO HS Qty: 0 RF: 0 Clonazepam 0.5 MG tablet 0.25 mg PO HS Qty: 0 RF: 0 Furosemide 20 MG tablet 40 mg PO BID Qty: 0 RF: 0 Hydralazine HCl 50 MG tablet 50 mg PO TID Qty: 0 RF: 0 Isosorbide Mononitrate (Isosorbide Mononitrate ER) 30 MG BLAST-CRT-OII 30 mg PO QAM Qty: 0 RF: 0 Metolazone 5 MG tablet 5 mg UD PRN (Reason: WT GAIN) Qty: 0 RF: 0 METFORMIN HCL (GLUCOPHAGE) 500 MG tablet 500 mg PO QAM Qty: 0 RF: 0 CARBONYL IRON (FEOSOL) 45 MG tablet 1 tab PO QAM Qty: 0 RF: 0 CARVEDILOL (COREG) 12.5 MG tablet 25 mg PO BID Qty: 0 RF: 0 Finasteride (Proscar) 5 MG tablet 5 mg PO QPM Qty: 0 RF: 0 TAMSULOSIN HCL (FLOMAX) 0.4 MG capsule 0.4 mg PO QPM Qty: 0 RF: 0 VENLAFAXINE HCL (Effexor) 75 MG tablet 75 mg PO QAM Qty: 0 RF: 0 ASPIRIN (ASPIRIN EC) 81 MG tablet 81 mg PO QAM Qty: 0 RF: 0 Potassium Ext Rel (Klor-Con) 20 MEQ ODRZE-WYS-SVM 20 meq PO TID Qty: 0 RF: 0 Vitamin D2 5,000 units 1 tab PO MONTHLY RF: 0 Stand-Alone Forms: [facility] Discharge Orders: Discharge Order (Routine); Ordered 10/21/18 Ordered By: Esme Cheema Admission Data Admit Date/Time: 10/20/18 10:54 Attending Provider: Josef Okeefe Admit Provider: Josef Okeefe Primary Care Provider: Jeronimo Denton Service: Telemetry Other Interventions: Discharge Summary Assessment (RN) Last Done: 10/21/18 11:36 DC Date/Time DO NOT enter until pt leaves facility: 10/21/18 12:42
--- NOTE | 2018-10-21 10:31 | Cardiology Progress Note ---
Date of Service October 21, 2018 Assessment & Plan (1) ICD (implantable cardioverter-defibrillator) in place: He is doing well today postop day #1, the device is working well and the chest x-ray looks good. He does have the pleural effusion which on preliminary review does not seem to have increased. As long as this remains stable he should be stable for discharge today. He will be seen in the office next week and I will repeat the echocardiogram in about 1 week. I reviewed options inclu ding referral to [facility] to see whether they would consider either an epicardial system or if they would prefer to take another attempt at an intravascular system. Subjective He is feeling well today, he is having no significant incisional discomfort and he has no chest discomfort to suggest pericarditis. Physical Exam Vital Signs (Past 24 Hours): Last Vital Signs Temp 36.7 C 10/21/18 07:24 Pulse 60 10/21/18 07:24 Resp 20 10/21/18 07:24 BP 143/78 H 10/21/18 07:24 Pulse Ox 94 10/21/18 07:24 Physical Exam: The incision looks clean and dry, minor ecchymosis, no swelling Results & Data Diagnostic Findings ECG: Atrial and ventricular pacing appropriately. Telemetry: Ventricular pacing appropriately ICD evaluation: Excellent pacing and sensing characteristics Chest x-ray: Good lead position, no pneumothorax Echocardiogram: Follow-up echocardiogram this morning shows a small pericardial effusion by my estimation, but does not appear to be increased but I did not do a [id number] comparison
[2018-10-21 10:38] LABS: Estimated Average Glucose 146 mg/dl; Hemoglobin A1C 6.7 % (4.5-5.6)
[2018-11-18] MEDS ORDERED: ERGOCALCIFEROL 50,000 UNITS CAP PO SCH (09:00)
== END 2018-10-21 12:42 | disposition home or self-care (01) ==
LOC: 2S 07:23 → ASU 07:23